=== PATIENT | female | born 1965 | race Caucasian/White ===

== ENCOUNTER → 2023-12-28 12:41 | Outpatient (REF) | payer OTHER, SELFPAY | LOC: HWRAD 12:41 | PROVIDERS: ATTENDING PHYSICIAN Internal Medicine; FAMILY PHYSICIAN Family Medicine | DX: M25.551 Pain in right hip (principal) | CPT/HCPCS: 73502 ==

== ENCOUNTER → 2024-05-02 14:35 | Outpatient (REF) | payer OTHER, SELFPAY | LOC: HWWDC 14:35 | PROVIDERS: ATTENDING PHYSICIAN Family Medicine; REFERRING PHYSICIAN Obstetrics & Gynecology | DX: Z12.31 Encounter for screening mammogram for malignant neoplasm of breast (principal) | CPT/HCPCS: 77063; 77067 ==